=== PATIENT | female | born 1955 | race Asian ===

== ENCOUNTER 2018-05-09 04:07 | Observation (INO) | payer MEDICARE, BC ==
[2018-05-09] MEDS: morphine 2 MG INJ IV ×2 (04:32→17:02)
[2018-05-09] MEDS: FAMOTIDINE 20 MG INJ IV (04:32)
[2018-05-09] MEDS: SOD CHLORIDE 0.9% 1,000 ML IV (04:32)
[2018-05-09] MEDS: ONDANSETRON 4 MG INJ IV (04:32)
[2018-05-09] MEDS: LIDOCAINE/MYLANTA 40 ML BTL PO (04:35)
[2018-05-09 04:48] LABS: ADD MAN DIFF? NO
[2018-05-09 04:51] LABS: WHITE BLOOD COUNT 5.5 10^3/ul (4.8-10.8)
[2018-05-09 04:51] LABS: BASOPHILS % 0.5 % (0.0-2.0); EOSINOPHILS # 0.1 10^3/ul (0.0-0.5); EOSINOPHILS % 1.1 % (0.0-7.0); HEMATOCRIT 39.9 % (37.0-47.0); HEMOGLOBIN 13.7 g/dl (12.0-16.0); LYMPHOCYTES % 35.5 % (15.0-51.0); MEAN CORPUSCULAR HEMOGLOBIN 30.8 pg (29.0-33.0); MEAN CORPUSCULAR HGB CONC 34.3 g/dl (32.0-37.0); MEAN CORPUSCULAR VOLUME 89.7 fl (82.0-101.0); MEAN PLATELET VOLUME 10.2 fl (7.4-10.4); MONOCYTE # 0.3 10^3/ul (0.3-0.9); MONOCYTES % 5.6 % (0.0-11.0); NEUTROPHIL # 3.1 10^3/ul (1.6-7.5); NEUTROPHILS % 57.1 % (39.0-77.0); PLATELET COUNT 218 10^3/UL (140-415); RED BLOOD COUNT 4.45 10^6/ul (4.20-5.40); RED CELL DISTRIBUTION WIDTH 11.9 % (11.5-14.5)
[2018-05-09 05:10] LABS: ALANINE AMINOTRANSFERASE 25 IU/L (13-69); ALBUMIN 4.4 g/dl (3.3-4.9); ALBUMIN/GLOBULIN RATIO 1.41; ALKALINE PHOSPHATASE 109 IU/L (42-121); ANION GAP 12 (8-16); ASPARTATE AMINO TRANSFERASE 24 IU/L (15-46); BILIRUBIN,INDIRECT 0.4 mg/dl (0-1.1); BILIRUBIN,TOTAL 0.4 mg/dl (0.2-1.3); BLOOD UREA NITROGEN 13 mg/dl (7-20); CALCIUM 9.3 mg/dl (8.4-10.2); CARBON DIOXIDE 28 mmol/L (21-31); CHLORIDE 105 mmol/L (97-110); CREATININE 0.54 mg/dl (0.44-1.00); GLUCOSE 91 mg/dl (70-220); LIPASE 65 U/L (23-300); POTASSIUM 3.8 mmol/L (3.5-5.1); SODIUM 141 mmol/L (135-144); TOTAL PROTEIN 7.5 g/dl (6.1-8.1)
[2018-05-09 05:44] LABS: TROPONIN-I < 0.012 ng/ml (0.000-0.120)
[2018-05-09 07:00] LABS: ADD UMIC NO; UR ASCORBIC ACID NEGATIVE (NEGATIVE); UR BILIRUBIN (Dip) NEGATIVE (NEGATIVE); UR BLOOD (Dip) NEGATIVE (NEGATIVE); UR CLARITY CLEAR (CLEAR); UR COLOR STRAW (YELLOW); UR GLUCOSE (Dip) NEGATIVE (NEGATIVE); UR KETONES (Dip) NEGATIVE (NEGATIVE); UR LEUKOCYTE ESTERASE (Dip) NEGATIVE Leu/ul (NEGATIVE); UR NITRITE (Dip) NEGATIVE (NEGATIVE); UR SPECIFIC GRAVITY (Dip) 1.005 (1.003-1.030); UR TOTAL PROTEIN (Dip) NEGATIVE (NEGATIVE); UR UROBILINOGEN (Dip) NEGATIVE (NEGATIVE)
[2018-05-09] MEDS ORDERED: ACETAMINOPHEN 325 MG TAB PO (09:00)
[2018-05-09] MEDS ORDERED: ONDANSETRON 4 MG INJ IV ×2 (09:00→12:30)
[2018-05-09] MEDS ORDERED: NITROGLYCERIN (SL) 0.4 MG TAB SL (12:30)
[2018-05-09] MEDS ORDERED: HYDROCODONE/APAP (5/325) TAB PO (12:30)
[2018-05-09] MEDS ORDERED: ZOLPIDEM 5 MG TAB PO (12:30)
[2018-05-09] MEDS ORDERED: NACL 0.9% 3 ML SYG IV (12:30)
[2018-05-09] MEDS: ASPIRIN 81 MG TAB PO (13:44)
[2018-05-09] MEDS: FAMOTIDINE 20 MG TAB PO ×2 (13:44→23:23)
[2018-05-09 18:14] LABS: CREATINE KINASE 59 IU/L (23-200)
[2018-05-09 18:27] LABS: CK INDEX 0.6; CK-MB 0.37 ng/ml (0.0-2.4)
[2018-05-09 18:28] LABS: TROPONIN-I < 0.012 ng/ml (0.000-0.120)
[2018-05-09] MEDS: ISOSORBIDE DINITRATE 20 MG TAB PO (21:15)
[2018-05-09] MEDS ORDERED: morphine LIQ (10 MG/5 ML) CUP PO (22:30)
[2018-05-10 01:31] LABS: CREATINE KINASE 49 IU/L (23-200)
[2018-05-10 01:45] LABS: CK INDEX 0.7; CK-MB 0.34 ng/ml (0.0-2.4)
[2018-05-10 01:46] LABS: TROPONIN-I < 0.012 ng/ml (0.000-0.120)
[2018-05-10 07:03] LABS: ADD MAN DIFF? NO
[2018-05-10 07:11] LABS: WHITE BLOOD COUNT 4.9 10^3/ul (4.8-10.8)
[2018-05-10 07:11] LABS: BASOPHILS % 0.6 % (0.0-2.0); EOSINOPHILS # 0.1 10^3/ul (0.0-0.5); HEMATOCRIT 38.2 % (37.0-47.0); HEMOGLOBIN 13.1 g/dl (12.0-16.0); LYMPHOCYTES # 1.6 10^3/ul (0.8-2.9); LYMPHOCYTES % 31.6 % (15.0-51.0); MEAN CORPUSCULAR HGB CONC 34.3 g/dl (32.0-37.0); MEAN CORPUSCULAR VOLUME 90.3 fl (82.0-101.0); MEAN PLATELET VOLUME 9.8 fl (7.4-10.4); MONOCYTE # 0.3 10^3/ul (0.3-0.9); MONOCYTES % 6.1 % (0.0-11.0); NEUTROPHILS % 60.5 % (39.0-77.0); PLATELET COUNT 216 10^3/UL (140-415); RED BLOOD COUNT 4.23 10^6/ul (4.20-5.40); RED CELL DISTRIBUTION WIDTH 11.7 % (11.5-14.5)
[2018-05-10 07:45] LABS: ANION GAP 13 (8-16); BLOOD UREA NITROGEN 18 mg/dl (7-20); CALCIUM 9.1 mg/dl (8.4-10.2); CARBON DIOXIDE 28 mmol/L (21-31); CHLORIDE 103 mmol/L (97-110); CREATININE 0.67 mg/dl (0.44-1.00); GLUCOSE 96 mg/dl (70-220); POTASSIUM 4.5 mmol/L (3.5-5.1); SODIUM 139 mmol/L (135-144)
[2018-05-10] MEDS: ASPIRIN 81 MG TAB PO (08:05)
[2018-05-10] MEDS: ISOSORBIDE DINITRATE 20 MG TAB PO ×2 (08:05→13:00)
[2018-05-10] MEDS: FAMOTIDINE 20 MG TAB PO (08:05)
[2018-05-10 08:13] LABS: CHOLESTEROL 183 mg/dl (100-200)
[2018-05-10 08:13] LABS: CHOL/HDL RATIO 2.8 RATIO; HDL CHOLESTEROL 65 mg/dl (35-98); LDL CHOLESTEROL,CALCULATED 98 mg/dl; TRIGLYCERIDES 101 mg/dl (0-149)
[2018-05-10] MEDS: ACETAMINOPHEN 325 MG TAB PO (08:38)
[2018-05-10] MEDS: ENOXAPARIN 30 MG/0.3 ML SYG SC (08:41)
[2018-05-10] MEDS: REGADENOSON 0.4 MG/5 ML SYG (11:46)
== END 2018-05-10 18:45 | disposition home or self-care (01) ==
LOC: E/R 04:07 → TEL 05:44
DX: R07.9 Chest pain, unspecified (principal); F41.9 Anxiety disorder, unspecified; R00.1 Bradycardia, unspecified; M54.2 Cervicalgia; R94.31 Abnormal electrocardiogram [ECG] [EKG]; R03.0 Elevated blood-pressure reading, without diagnosis of hypertension
CPT/HCPCS: 36415; 71045; 78452; 80048; 80053; 80061; 81003; 82550; 82553; 83690; 84443; 84484; 85025; 93005; 93017; 93306; 96374; 96375; 99285-25; G0378

== ENCOUNTER 2019-05-16 18:40 | Emergency (ER) | payer MEDICARE ==
[2019-05-16 19:40] LABS: URINE BLOOD (Dip) POC 1+ (NEGATIVE); URINE GLUCOSE (Dip) POC Negative (NEGATIVE); URINE KETONES (Dip) POC Negative (NEGATIVE); URINE LEUKOCYTE EST (Dip) POC Trace (NEGATIVE); URINE NITRITE (Dip) POC Negative (NEGATIVE); URINE TOTAL PROTEIN POC Negative (NEGATIVE)
[2019-05-16 19:40] LABS: URINE PH (Dip) POC 7.5 (5.0-8.5)
[2019-05-16] MEDS: SOD CHLORIDE 0.9% 500 ML IV (20:09)
[2019-05-16] MEDS: KETOROLAC 15 MG INJ IV (20:09)
[2019-05-16 20:10] LABS: ADD MAN DIFF? NO
[2019-05-16 20:15] LABS: ADD UMIC YES; BASOPHILS % 0.6 % (0.0-2.0); EOSINOPHILS % 0.6 % (0.0-7.0); HEMATOCRIT 36.2 % (37.0-47.0); HEMOGLOBIN 12.3 g/dl (12.0-16.0); LYMPHOCYTES # 1.9 10^3/ul (0.8-2.9); LYMPHOCYTES % 38.8 % (15.0-51.0); MEAN CORPUSCULAR HEMOGLOBIN 29.8 pg (29.0-33.0); MEAN CORPUSCULAR VOLUME 87.7 fl (82.0-101.0); MEAN PLATELET VOLUME 10.7 fl (7.4-10.4); MONOCYTE # 0.4 10^3/ul (0.3-0.9); MONOCYTES % 7.7 % (0.0-11.0); NEUTROPHIL # 2.6 10^3/ul (1.6-7.5); NEUTROPHILS % 52.1 % (39.0-77.0); PLATELET COUNT 190 10^3/UL (140-415); RED BLOOD COUNT 4.13 10^6/ul (4.20-5.40); UR ASCORBIC ACID NEGATIVE (NEGATIVE); UR BILIRUBIN (Dip) NEGATIVE (NEGATIVE); UR BLOOD (Dip) 2+ mg/dL (NEGATIVE); UR CLARITY CLEAR (CLEAR); UR COLOR STRAW (YELLOW); UR GLUCOSE (Dip) NEGATIVE (NEGATIVE); UR KETONES (Dip) NEGATIVE (NEGATIVE); UR LEUKOCYTE ESTERASE (Dip) NEGATIVE Leu/ul (NEGATIVE); UR NITRITE (Dip) NEGATIVE (NEGATIVE); UR RBC 30 /HPF (0-5); UR SPECIFIC GRAVITY (Dip) 1.015 (1.003-1.030); UR TOTAL PROTEIN (Dip) NEGATIVE (NEGATIVE); UR UROBILINOGEN (Dip) NEGATIVE (NEGATIVE); UR WBC 7 /HPF (0-5)
[2019-05-16 20:35] LABS: ANION GAP 6 (5-13); BLOOD UREA NITROGEN 23 mg/dl (7-20); CALCIUM 8.6 mg/dl (8.4-10.2); CARBON DIOXIDE 27 mmol/L (21-31); CHLORIDE 108 mmol/L (97-110); CREATININE 0.69 mg/dl (0.44-1.00); Estimated GFR > 60 mL/min (>60); GLUCOSE 105 mg/dl (70-220); SODIUM 141 mmol/L (135-144)
== END 2019-05-16 23:14 | disposition home or self-care (01) ==
LOC: E/R 18:40
DX: N20.2 Calculus of kidney with calculus of ureter (principal)
CPT/HCPCS: 36415; 74176; 80048; 81001; 81003; 85025; 87086; 96374; 99285-25